=== PATIENT | female | born 1975 | race Caucasian/White ===

== ENCOUNTER 2018-12-24 10:54 | Emergency (ER) | payer OTHER ==
[~2018-12-24] VITALS: Ht 160 cm; Wt 77.1 kg
[~2018-12-24 10:54] MED LIST: BACITRACIN 500U30 G1 TOP; BACTRIM DS TAB1 EACH PO; FLEXERIL PO; NORCO 5-325 TA1 EACH PO; PYRIDIUM200 MG PO; WELLBUTRIN SR150 MG PO
[2018-12-24] MEDS ORDERED: ZOLOFT100 MG PO (11:25)
[2018-12-24] MEDS ORDERED: NORCO 5-325 TA1 EAC1 PO (11:56)
[2018-12-24 12:24] VITALS: BP 117/68
== END 2018-12-24 12:25 | disposition home or self-care (01) ==
LOC: M.ERS 10:54
DX: S89.82XA Other specified injuries of left lower leg, initial encounter (principal); M25.462 Effusion, left knee; F32.9 Major depressive disorder, single episode, unspecified; F17.210 Nicotine dependence, cigarettes, uncomplicated; X50.1XXA Overexertion from prolonged static or awkward postures, initial encounter; Y93.89 Activity, other specified; Y92.89 Other specified places as the place of occurrence of the external cause; Y99.8 Other external cause status